=== PATIENT | female | born 1960 | race Asian ===

== ENCOUNTER → 2016-10-28 | Outpatient (CLI) | payer BC ==
[~2016-10-28] MED LIST: ARAVA10 MG PO; ASPERDRINK81 MG PO; FISH OIL 1,2001 CAP PO; LIPITOR40 MG PO; MULTI VITAMIN1 EACH PO; ZITHROMAX PO
--- NOTE | ~2016-10-28 | CR142 ---
[facility] A Service of [facility] & [facility] RADIOLOGY TEXT RESULTS PATIENT: IVAN MELVIN LOCATION: [facility] : 58 UNIT #: [id number] AGE: [address]: Lorri Gray MD SEX: F ORDER DR: [id number] [facility] [address]. [place], [place] [address] [id number] O MR#: [id number] Acc #: [id number] NAME: IVAN MELVIN : 1960 SEX: F STUDY DATE/TIME: 10/28/2016 10:17 UNIT: [facility] ROOM: STUDY DESCRIPTION: CR Hand Min 3 Views Rt Attending Physician: Lorri Gray M.D. Referring Physician: Lorri Gray M.D. Ordering Physician: Lorri Gray M.D. Primary Care Physician: Syeda Hawk M.D. MEDICAL IMAGING REPORT This report is preliminary unless electronic signature is present EXAM Right hand. DATE OF EXAM 10/28/2016 INDICATION Right hand pain and swelling for 2 years. Evaluate for erosions. FINDINGS 3 views of the right hand were obtained. The bones are normal. There are no erosions or degenerative changes. IMPRESSION Normal right hand. Dictated by... Andry Grayson M.D. THIS IS AN ELECTRONICALLY VERIFIED REPORT Andry Grayson M.D. at 10/28/2016 4:37 PM GORGE/donavon TD: 10/28/2016 15:21 JOB #: [id number] MEDICAL IMAGING REPORT Page 1 of 1 COPY
--- NOTE | ~2016-10-28 | CR282 ---
[facility] A Service of [facility] & [facility] RADIOLOGY TEXT RESULTS PATIENT: IVAN MELVIN LOCATION: [facility] : 58 UNIT #: [id number] AGE: [address]: Lorri Gray MD SEX: F ORDER DR: [id number] [facility] [address] [place], [place] [address] [id number] O MR#: [id number] Acc #: [id number] NAME: IVAN MELVIN : 1960 SEX: F STUDY DATE/TIME: 10/28/2016 10:15 UNIT: [facility] ROOM: STUDY DESCRIPTION: CR Wrist Min 3 View Rt Attending Physician: Lorri Gray M.D. Referring Physician: Lorri Gray M.D. Ordering Physician: Lorri Gray M.D. Primary Care Physician: Syeda Hakw M.D. MEDICAL IMAGING REPORT This report is preliminary unless electronic signature is present EXAM Right wrist HISTORY Bilateral hand and wrist pain and swelling for 2 years. FINDINGS 3 views of the right wrist were obtained. The bones are normal in appearance. There is no degenerative change or erosion. There is no fracture. IMPRESSION Normal right wrist. Dictated by... Andry Grayson M.D. THIS IS AN ELECTRONICALLY VERIFIED REPORT Andry Grayson M.D. at 10/28/2016 4:37 PM Rubia TD: 10/28/2016 15:05 JOB #: [id number] MEDICAL IMAGING REPORT Page 1 of 1 COPY
--- NOTE | ~2016-10-28 | CR141 ---
[facility] Service of [facility] & [facility] RADIOLOGY TEXT RESULTS PATIENT: IVAN MELVIN LOCATION: [facility] : 58 UNIT #: [id number] AGE: [address]: Lorri Gray MD SEX: F ORDER DR: [id number] [facility] [address] [place], [place] [address] [id number] O MR#: [id number] Acc #: [id number] NAME: IVAN MELVIN : 1960 SEX: F STUDY DATE/TIME: 10/28/2016 10:20 UNIT: [facility] ROOM: STUDY DESCRIPTION: CR Hand Min 3 Views Lt Attending Physician: Lorri Gray M.D. Referring Physician: Lorri Gray M.D. Ordering Physician: Lorri Gray M.D. Primary Care Physician: Syeda Hawk M.D. MEDICAL IMAGING REPORT This report is preliminary unless electronic signature is present EXAM Left hand HISTORY Pain and swelling for 2 years. Evaluate for erosions. FINDINGS 3 views of the left hand were obtained. Bones are normal. No erosions or osteopenia are suggested. IMPRESSION Normal left hand. Dictated by... Andry Grayson M.D. THIS IS AN ELECTRONICALLY VERIFIED REPORT Andry Grayson M.D. at 10/28/2016 4:37 PM Rubia TD: 10/28/2016 15:16 JOB #: [id number] MEDICAL IMAGING REPORT Page 1 of 1 COPY
--- NOTE | ~2016-10-28 | CR281 ---
[facility] A Service of [facility] & [facility] RADIOLOGY TEXT RESULTS PATIENT: IVAN MELVIN LOCATION: [facility] : 58 UNIT #: [id number] AGE: [address]: Lorri Gray MD SEX: F ORDER DR: [id number] [facility] [address] [facility]. [place], [place] [address] [id number] O MR#: [id number] Acc #: [id number] NAME: IVAN MELVIN : 1960 SEX: F STUDY DATE/TIME: 10/28/2016 10:18 UNIT: [facility] ROOM: STUDY DESCRIPTION: CR Wrist Min 3 View Lt Attending Physician: Lorri Gray M.D. Referring Physician: Lorri Gray M.D. Ordering Physician: Lorri Gray M.D. Primary Care Physician: Syeda Hawk M.D. MEDICAL IMAGING REPORT This report is preliminary unless electronic signature is present EXAM Left wrist HISTORY Left wrist pain and swelling for 2 years. FINDINGS Wrist evaluation in multiple projections shows normal mineralization of the bony structures about the wrist and satisfactory articular relationship of the radius and ulna to the proximal carpal row and of the distal carpal segments to the metacarpal bases. There is no indication of fracture or dislocation, and no soft tissue radiopaque foreign body is present. No congenital defects are apparent. IMPRESSION Normal wrist. Dictated by... Andry Grayson M.D. THIS IS AN ELECTRONICALLY VERIFIED REPORT Andry Grayson M.D. at 10/28/2016 4:37 PM GORGE/monika TD: 10/28/2016 15:20 JOB #: [id number] MEDICAL IMAGING REPORT Page 1 of 1 COPY
[2016-10-28 10:48] LABS: URIC ACID 3.9 mg/dL (2.6-7.2)
[2016-10-30 15:33] LABS: ANA SCREEN Negative (Negative); HEPATITIS B SURFACE ANTIBODY <5 mIU/mL (>=10)
== END | disposition home or self-care (01) ==
LOC: CLAB 09:32
PROVIDERS: Internal Medicine Rheumatology
DX: M06.09 Rheumatoid arthritis without rheumatoid factor, multiple sites (principal); M79.642 Pain in left hand; M79.641 Pain in right hand
CPT/HCPCS: 36415; 73110; 73130; 80061; 84550; 85652; 86038; 86039; 86140; 86200; 86430; 86706